=== PATIENT | female | born 1995 | race Caucasian/White ===

== ENCOUNTER 2024-06-26 15:54 | Outpatient (OUT) | payer OTHER, SELFPAY ==
--- NOTE | 2024-06-26 15:55 | US_ITS ---
[address] [address] Patient Name: MADELEINE BRANDT MRN: [id number] date: 1995 Sex: F Assigned Patient Location: US Current Patient Location: US Accession/Order Number: [id number] Exam Date: 06/26/2024 16:33 Report Date: 06/26/2024 16:34 At the request of: PASTORA DE LEÓN APRN, CNM Procedure: US OB BPP wo non-stress Biophysical profile. Reason for exam: Hypothyroidism. COMPARISON: None. TECHNIQUE: Transabdominal imaging of the gravid uterus was obtained. FINDINGS: Toe Former [employer] reports a BPP of 8 out of 8. ADRIEN is normal at 16 cm. heart rate 129 bpm. US/US OB BPP wo non-stress Impression: BPP 8 out of 8. Impression dictated by: Camilo Johnson Jr., DKevinOKevin 06/26/2024 4:34 PM Dictation Location: [email or web address] Electronically authenticated by: [id number] Y Date: 06/26/2024 16:34
== END 2024-06-26 15:55 | disposition home or self-care (01) ==
LOC: US 15:54
PROVIDERS: PCP Family Medicine; Visit Provider Midwife
DX: O99.280 Endocrine, nutritional and metabolic diseases complicating pregnancy, unspecified trimester (principal); E03.9 Hypothyroidism, unspecified
CPT/HCPCS: 76819

== ENCOUNTER 2024-07-03 15:40 | Outpatient (OUT) | payer OTHER, SELFPAY ==
--- NOTE | 2024-07-03 15:45 | US_ITS ---
[address] [address] Patient Name: MADELEINE BRANDT MRN: [id number] date: 1995 Sex: F Assigned Patient Location: US Current Patient Location: US Accession/Order Number: [id number] Exam Date: 07/03/2024 16:50 Report Date: 07/03/2024 16:51 At the request of: PASTORA DE LEÓN APRN, CNM Procedure: US OB BPP wo non-stress Biophysical profile. Reason for exam: Hypothyroidism. COMPARISON: 06/26/2024 TECHNIQUE: Transabdominal imaging of the gravid uterus was obtained. FINDINGS: X Ray Operator reports a BPP of 8 out of 8. ADRIEN is normal at 13.6 cm. heart rate 126 bpm. US/US OB BPP wo non-stress Impression: BPP 8 out of 8. Impression dictated by: Camilo Johnson Jr., D.O. 07/03/2024 4:51 PM Dictation Location: [facility] Electronically authenticated by: [id number] Y Date: 07/03/2024 16:51
== END 2024-07-03 15:41 | disposition home or self-care (01) ==
LOC: US 15:40
PROVIDERS: PCP Family Medicine; Visit Provider Midwife
DX: O99.280 Endocrine, nutritional and metabolic diseases complicating pregnancy, unspecified trimester (principal)
CPT/HCPCS: 76819

== ENCOUNTER 2024-08-12 06:03 | Inpatient (IN) | payer OTHER, SELFPAY ==
[2024-08-12] VITALS (55 sets, daily range): BP systolic 85–151; BP diastolic 48–86; PULSE 71–184; TEMP 36.4–36.9; O2SAT 97
[2024-08-12 06:41] LABS: Hematocrit 29.4 % (36.0-48.0); Hemoglobin 9.7 g/dL (12.0-16.0); Mean Corpuscular Hemoglobin 27.4 pg (26.7-34.0); Mean Corpuscular Volume 83.1 fL (81.0-99.0); Mean Platelet Volume 11.6 fL (9.5-13.5); Platelet Count 167 10^3/uL (150-450); Red Blood Count 3.54 10^6/uL (4.20-5.40); Red Cell Distribution Width 14.9 % (11.0-15.0); White Blood Count 7.5 10^3/uL (4.0-11.0)
[2024-08-12 06:56] LABS: Amphetamine Screen Urine NEGATIVE (NEGATIVE); Barbiturates Screen Urine NEGATIVE (NEGATIVE); Benzodiazepines Screen Urine NEGATIVE (NEGATIVE); Buprenorphine Screen Urine NEGATIVE (NEGATIVE); Cannabinoid Screen Urine NEGATIVE (NEGATIVE); Cocaine Screen Urine NEGATIVE (NEGATIVE); Methadone Screen Urine NEGATIVE (NEGATIVE); Methamphetamines Screen Urine NEGATIVE (NEGATIVE); Opiate Screen Urine NEGATIVE (NEGATIVE); Oxycodone Screen Urine NEGATIVE (NEGATIVE); Phencyclidine Screen Urine NEGATIVE (NEGATIVE); Tricyclic Antidepressant Urine NEGATIVE (NEGATIVE)
[2024-08-12] MEDS: LACTATED RINGER'S SOLUTION 1,000 ML 125 ML IV (07:05)
[2024-08-12] MEDS: OXYTOCIN/0.9 % SODIUM CHLORIDE 10 UNITS/500 ML PLAST..BAG 6 UNIT IV (07:06)
--- NOTE | 2024-08-12 09:00 | PM.OBHP ---
OB - H&P: HPI History of Present Illness Chief complaint: INDUCTION : 4 Para: 3 Gestational age based on last menstrual period: 39.0 History of Present Dating criteria: LMP confirmed by 1st trimester US care: good care Ultrasounds: normal 1st trimester US and normal mid trimester US complications comment: anemia, hypothyroid Labs Blood type: A (+) positive Rubella: immune RPR/VDLR: nonreactive GBS status: negative HBsAG: negative Review of Systems ROS Status of ROS: 10 or more systems reviewed and unremarkable except as noted in history and below Meds Home Medications and Allergies Allergies Allergy/AdvReac Type Severity Reaction Status Date / Time No Known Drug Allergies Allergy Verified 08/12/24 06:07 Exam Constitutional Vital Signs, click to edit/add: Last Vital Signs Pulse 85 08/12/24 08:59 BP 151/79 H 08/12/24 08:59 Common normals: no apparent distress, average body habitus, oriented x3, no limitations, healthy appearing, alert and well nourished Exam limitations: altered mental status General appearance: cooperative, comfortable and well kempt Orientation/consciousness: Yes awake, Yes oriented to person, Yes oriented to place and Yes oriented to time HENMT Common normals: normocephalic Eye Common normals: EOMs intact bilaterally General eye: normal appearance of both eyes Neck & C-Spine Common normals: full ROM General: normal visual inspection Lymph Lymphatic: no lymphadenopathy noted Chest Common normals: inspection of chest normal Respiratory Common normals: normal respiratory effort Effort & inspection: able to speak in complete sentences Auscultation: clear to auscultation bilaterally Cardio Common normals: regular rate and regular rhythm Rate: regular rate Rhythm: regular rhythm GI Common normals: Normal to inspection, nondistended, normoactive bowel sounds present Inspection: normal to inspection Palpation: soft Common normals: no CVA tenderness Back & Pelvis Common normals: no CVA tenderness Thoracic spine/upper back: normal to inspection Extremity Common normals: normal to inspection Neuro Common normals: oriented x3 Sensorium/orientation: awake, alert, oriented to person, oriented to place and oriented to time Psych Common normals: mental status grossly normal, thought process normal, cooperative, affect normal, speech normal, activity/motor behavior normal, denies hallucinations, denies homicidal ideation and denies suicidal ideation Appearance: grossly normal Attitude: calm Thought process: normal thought process Thought content: normal thought content Results Labs Labs: Short CBC 08/12/24 Range/Units 06:15 WBC 7.5 (4.0-11.0) 10^3/uL Hgb 9.7 L (12.0-16.0) g/dL Hct 29.4 L (36.0-48.0) % Plt Count 167 (150-450) 10^3/uL OB - A/P Assessment and Plan (1) Term : (2) Hypothyroidism (acquired):
--- NOTE | 2024-08-12 09:09 | PM.EN ---
Event Note Event Note: 0852 CNM to room to assess patient. Patient did not tolerated SVE well, crying and legs closed and tight against me. SVE / ballotable. Did not perform amniotomy at this time.
[2024-08-12] MEDS: NALBUPHINE HCL 10 MG/ML AMPULE IV (12:40)
[2024-08-12] MEDS: ONDANSETRON 4 MG RAPDIS TABLET SL (12:43)
--- NOTE | 2024-08-12 12:46 | PM.EN ---
Event Note Event Note: 1236 Dr Montenegro to the room and speaks with patient regarding AROM. Patient is in agreement for him to perform AROM. He performed AROM with sterile amni hook with return of small amount of clear, odorless fluid. heart tones stable before, during and after procedure.
[2024-08-12] MEDS: ROPIVACAINE HCL/PF 400 MG/200 ML PREMIX 10 MG EPIDURAL (17:27)
[2024-08-12] MEDS: LACTATED RINGER'S SOLUTION 1,000 ML 999 ML IV ×2 (17:27→18:00)
[2024-08-12] MEDS: OXYTOCIN/0.9 % SODIUM CHLORIDE 10 UNITS/500 ML PLAST..BAG 60 UNIT IV (18:00)
[2024-08-12] MEDS: ACETAMINOPHEN 500 MG TABLET 1000 MG PO (20:02)
[2024-08-13] VITALS (33 sets, daily range): BP systolic 95–158; BP diastolic 56–88; PULSE 67–121; TEMP 36.7–37.3; O2SAT 97
[2024-08-13] MEDS: LACTATED RINGER'S SOLUTION 1,000 ML 999 ML IV (02:00)
[2024-08-13] MEDS: OXYTOCIN/0.9 % SODIUM CHLORIDE 20 UNITS/1,000 ML PLAST..BAG 125 UNIT IV (04:34)
--- NOTE | 2024-08-13 04:57 | PM.OBPRCVD ---
Procedure Induction method: per pitocin protocol Delivery augmentation: rupture of membranes Delivery monitor: external FHT and external uterine Route of delivery: Episiotomy Description: none L&D Laceration Description: perineal - 1st degree Delivery repair: Vicryl Estimated blood loss (mL): 150 Anesthesia type: Epidural Disposition: no change Infant Delivery date: 08/13/24 Gender: female presentation: vertex Placental delivery description: Spontaneous cord description: 3 Vessels heart rate - 1 minute: 100 bpm or Greater respiratory effort - 1 minute: Spontaneous/Strong Cry muscle tone - 1 minute: Active Movement reflex response - 1 minute: Minimal Response color - 1 minute: Bluish Hands or Feet total score - 1 minute: 8 heart rate - 5 minute: 100 bpm or Greater respiratory effort - 5 minute: Spontaneous/Strong Cry muscle tone - 5 minute: Active Movement reflex response - 5 minute: Prompt Response color - 5 minute: Bluish Hands or Feet total score - 5 minute: 9
[2024-08-13] MEDS: IBUPROFEN 400 MG TABLET 800 MG PO ×3 (05:37→23:33)
[2024-08-13] MEDS: BENZOCAINE/MENTHOL 85 GRAM SPRAY BOTTLE 1 APPLIC TOPICAL (05:38)
[2024-08-13] MEDS: GLYCERIN/WITCH HAZEL PADS 1 PAD TOPICAL (05:38)
[2024-08-13] MEDS: LEVOTHYROXINE SODIUM 100 MCG TABLET PO (08:58)
[2024-08-14 07:03] LABS: Basophils Absolute Auto 0.1 10^3/uL (0.0-0.1); Basophils Percent Auto 0.6 % (0.2-2.0); Eosinophils Absolute Auto 0.1 10^3/uL (0.0-0.7); Eosinophils Percent Auto 0.9 % (0.9-7.0); Hematocrit 27.4 % (36.0-48.0); Hemoglobin 8.7 g/dL (12.0-16.0); Immature Granulocytes Abs Auto 0.06 10^3/uL (0.00-0.03); Immature Granulocytes Pct Auto 0.8 % (0.0-0.5); Lymphocytes Absolute Auto 1.5 10^3/uL (1.2-3.8); Lymphocytes Percent Auto 19.6 % (20.5-60.0); Mean Corpuscular HGB Conc 31.8 g/dL (29.9-35.2); Mean Corpuscular Hemoglobin 26.9 pg (26.7-34.0); Mean Corpuscular Volume 84.8 fL (81.0-99.0); Mean Platelet Volume 11.9 fL (9.5-13.5); Monocytes Absolute Auto 0.4 10^3/uL (0.3-0.8); Neutrophils Absolute Auto 5.7 10^3/uL (1.4-6.5); Neutrophils Percent Auto 73.1 % (43.0-75.0); Platelet Count 164 10^3/uL (150-450); Red Blood Count 3.23 10^6/uL (4.20-5.40); Red Cell Distribution Width 15.3 % (11.0-15.0); White Blood Count 7.8 10^3/uL (4.0-11.0)
[2024-08-14 07:29] VITALS: BP 122/86; PULSE 67
[2024-08-14 07:40] VITALS: BP 122/86; PULSE 67; TEMP 36.8
[2024-08-14] MEDS: IBUPROFEN 400 MG TABLET 800 MG PO (08:02)
[2024-08-14] MEDS: DOCUSATE SODIUM 100 MG CAPSULE PO (08:03)
[2024-08-14] MEDS: LEVOTHYROXINE SODIUM 100 MCG TABLET PO (08:06)
--- NOTE | 2024-08-14 10:42 | PM.OBDS ---
DS: Providers Provider Date of admission: 08/12/24 06:03 Primary care physician: JENIFFER FRANKEL Admitting clinician: Jeffrey Montenegro Attending physician on admission: Jeffrey Montenegro Consults: 08/12/24 Consult to Anesthesiology Routine Consulting Provider: John Parrish II Reason for consultation: epidural Attending physician on discharge: Piyush Butt Discharging clinician: Piyush Butt Anticipated date of discharge: 08/14/24 DS: Diagnosis Discharge Diagnosis (1) Term : (2) Hypothyroidism (acquired): Assessment and plan: Patient day #1 doing well. Patient will discharge to home today. (3) Term delivered: Plan Patient is day #1 doing well. Patient for discharge to home today. OB - DS: Summary Hospital Course Hospital Course: Uneventful hospital course Peripartum Data - Vaginal Delivery Laceration description: perineal - 1st degree Complications complications: none Delivery method: spontaneous vaginal delivery Gender: female Discharge plan: home Status at Discharge Cognitive/behavioral status at discharge: Good Functional status at discharge: independent ambulation Overall status at discharge: patient is back to baseline Time Spent with Patient Time attestation: Total time spent providing and/or coordinating discharge services: Time spent: less than 30 minutes Exam Constitutional Vital Signs, click to edit/add: Last Vital Signs Temp 98.3 F 08/14/24 07:40 Pulse 67 08/14/24 07:40 Resp 16 08/14/24 07:40 BP 122/86 08/14/24 07:40 Pulse Ox 97 08/13/24 08:50 O2 Del Method Room Air 08/14/24 07:40 Documenting provider has reviewed patient's vital signs: yes Common normals: no apparent distress, average body habitus, oriented x3, no limitations, healthy appearing, alert and well nourished General appearance: cooperative, comfortable, well kempt and well developed Orientation/consciousness: Yes awake, Yes oriented to person, Yes oriented to place and Yes oriented to time GI Common normals: Normal to inspection, nondistended, normoactive bowel sounds present, soft to palpation and non-tender Palpation: soft and firm (Fundus is firm and 1 fingerbreadth below umbilicus.) Back & Pelvis Pelvis: other (Mild lochia rubra is present.) Extremity Common normals: normal to inspection, no calf tenderness and no pedal edema DS: Data Data Completed and Pending Labs on day of discharge: Labs from last 24 hours 08/14/24 06:48 WBC 7.8 RBC 3.23 L Hgb 8.7 L Hct 27.4 L MCV 84.8 MCH 26.9 MCHC 31.8 RDW 15.3 H Plt Count 164 MPV 11.9 Neut % (Auto) 73.1 Lymph % (Auto) 19.6 L [place] % (Auto) 5.0 Eos % (Auto) 0.9 Baso % (Auto) 0.6 Neut # (Auto) 5.7 Lymph # (Auto) 1.5 [place] # (Auto) 0.4 Eos # (Auto) 0.1 Baso # (Auto) 0.1 Abs Immat Gran (auto) 0.06 H Imm/Tot Granulo (auto) 0.8 H Discharge Plan Discharge Disposition: Home, Self-Care Condition: Good Assessment: Patient is #1 doing well. Patient was discharged home today. Health Concerns: None Plan of Treatment: Routine care. Discharge Medications: New Dermoplast (with menthol) 20-0.5 % Aerosol 1 spray topical Q2H PRN (Reason: Pain) 30 Days Qty: 1 0RF ibuprofen 400 mg Tablet 800 mg PO Q8H 30 Days Qty: 180 0RF docusate sodium 100 mg Capsule 100 mg PO BID 30 Days Qty: 60 3RF [employer] 12.5-50 % Pads, Medicated 1 pad topical Q2H PRN (Reason: Pain) 30 Days Qty: 90 0RF simethicone [Gas Relief 80 (simethicone)] 80 mg Tablet,Chewable 80 mg PO QID PRN (Reason: Abdominal Distention) 30 Days Qty: 90 0RF Continued levothyroxine 100 mcg tablet 100 mcg PO .ACB Qty: 30 0RF Print Language: Malian Forms: Vaginal Delivery - Discharge, Portal Instructions
== END 2024-08-14 11:05 | disposition home or self-care (01) | DRG 560 ==
PROVIDERS: Admitting Provider Midwife; PCP Family Medicine; Visit Provider Midwife
DX: O99.284 Endocrine, nutritional and metabolic diseases complicating childbirth (principal); E03.9 Hypothyroidism, unspecified; O70.0 First degree perineal laceration during delivery; Z3A.39 39 weeks gestation of pregnancy; Z37.0 Single live birth; Z79.890 Hormone replacement therapy
CPT/HCPCS: 36415; 59050; 59410; 80307; 85025; 85027; 86850; 86900; 86901; J2300; J2795; Q0162